=== PATIENT | female | born 1985 | race Caucasian/White ===

== ENCOUNTER 2017-12-03 23:26 | Emergency (ER) | payer MEDICAID ==
[~2017-12-03] VITALS: Ht 149.9 cm; Wt 59.7 kg
[2017-12-04] MEDS ORDERED: proCHLORperazine 10mg tablet PO ONE (00:55)
[2017-12-04] MEDS ORDERED: SUMAtriptan succ. 6 MG/0.5ml vial SQ ONE (00:55)
[2017-12-04] MEDS ORDERED: SUMA25TA35 PO (00:57)
[2017-12-04] MEDS ORDERED: PROC-8 PO (00:57)
[2017-12-04 01:08] VITALS: BP 130/89
== END 2017-12-04 01:09 | disposition home or self-care (01) ==
LOC: ER 23:27
DX: J20.9 Acute bronchitis, unspecified (principal); Z79.899 Other long term (current) drug therapy
CPT/HCPCS: 96372; 99283; J3030; Q0164

== ENCOUNTER 2017-12-09 18:30 | Emergency (ER) | payer MEDICAID ==
[~2017-12-09] VITALS: Ht 149.9 cm; Wt 63.0 kg
[~2017-12-09 18:30] MED LIST: PROC-8 PO; SUMA25TA35 PO
[2017-12-09 18:55] VITALS: BP 125/77
== END 2017-12-09 20:14 | disposition left against medical advice (07) ==
LOC: ER 18:30
DX: R51 Headache (principal); Z53.21 Procedure and treatment not carried out due to patient leaving prior to being seen by health care provider

== ENCOUNTER 2020-12-24 17:54 | Emergency (ER) | payer MEDICAID ==
[~2020-12-24] VITALS: Ht 149.9 cm; Wt 79.5 kg
[~2020-12-24 17:54] MED LIST changes: -SUMA25TA35 PO
[2020-12-24 18:06] VITALS: BP 146/91
[2020-12-24] MEDS ORDERED: PENI500T2 PO (19:43)
== END 2020-12-24 19:57 | disposition home or self-care (01) ==
LOC: ER 17:54
DX: K04.7 Periapical abscess without sinus (principal); K08.89 Other specified disorders of teeth and supporting structures; Z79.2 Long term (current) use of antibiotics
CPT/HCPCS: 29125; 99283